=== PATIENT | male | born 1980 | race Two or more races ===

== ENCOUNTER 2023-02-02 18:21 | Emergency (ER) | payer OTHER ==
[~2023-02-02] VITALS: Ht 185.4 cm; Wt 91.0 kg
[2023-02-02] MEDS ORDERED: ACETAMINOPHEN 325MG TABLET PO ONE (20:15)
[2023-02-02 21:02] VITALS: BP 122/89
== END 2023-02-02 21:15 | disposition home or self-care (01) ==
LOC: ER 18:21
DX: J06.9 Acute upper respiratory infection, unspecified (principal)
CPT/HCPCS: 71045; 99283